=== PATIENT | female | born 1960 | race Two or more races ===

== ENCOUNTER 2017-08-25 09:56 | Emergency (ER) | payer BC, OTHER ==
--- NOTE | 2017-08-25 11:49 | Diagnostic Imaging Report ---
CT scan lumbar spine HISTORY: Pain, trauma Total DLP equals 1019 CTDI equals 34.6 Axial sections were obtained through the lumbar spine. Additional sagittal and coronal reformatted images are provided. Alignment is normal. Disc spaces are maintained. Small spur formation noted off the anterior superior margins of the bodies of L3, L4, L5. No acute abnormalities. No fractures. IMPRESSION: 1. Mild degenerative changes 2. No acute abnormalities
--- NOTE | 2017-08-25 11:51 | Diagnostic Imaging Report ---
Left lower extremity Doppler venous ultrasound exam HISTORY: Pain/swelling Sonographic sector images were obtained through the deep venous systems of the left leg. Associated Doppler data was obtained. The exam demonstrates patency of the common femoral, superficial femoral, popliteal, and posterior tibial veins. Specifically, no thrombus is seen. There are normal compressibility and augmentation responses. IMPRESSION: Negative exam for deep vein thrombophlebitis.
--- NOTE | 2017-08-25 12:45 | ED Physician Chart ---
ED Chief Complaint/HPI - Patient Information Date Seen:: 08/25/17 Time Seen:: 10:10 Chief Complaint:: LEFT LOWER BACK PAIN History of Present Illness:: THIS IS A 57 YO FEMALE WITH THE SUDDEN ONSET OF LEFT LOWER BACK PAIN TRAVELING DOWN TO HER LEFT LOWER LEG. SHE DENIES HAVING A RECENT INJURY OR FALL. 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 Allergies:: Allergies Allergy/AdvReac Type Severity Reaction Status Date / Time No Known Allergies Allergy Verified 08/25/17 10:09 Vitals:: Vital Signs - 8 hr 08/25/17 08/25/17 10:04 12:28 Temp 97.8 F 97.5 F HR 69 83 RR 16 18 BP 134/76 127/60 O2 Sat % 98 99 Historian:: Patient Review:: Nurse's Note Reviewed ED Review of Systems - Review of Systems General/Constitutional: No fever, No chills, No weight loss, No weakness, No diaphoresis, No edema, No loss of appetite Skin: No skin lesions, No rash, No bruising Head: No headache, No light-headedness Eyes: No loss of vision, No pain, No diplopia ENT: No earache, No nasal drainage, No sore throat, No tinnitus Neck: No neck pain, No swelling, No thyromegaly, No stiffness, No mass noted Cardio Vascular: No chest pain, No palpitations, No PND, No orthopnea, No edema Pulmonary: No SOB, No cough, No sputum, No wheezing GI: No nausea, No vomiting, No diarrhea, No pain, No melena, No hematochezia, No constipation, No hematemesis G/U: No dysuria, No frequency, No hematuria Musculoskeletal: No bone or joint pain, Back pain (LEFT LOWER BACK TENDERNESS WITH LIMITED PAINFUL ROM.), No muscle pain Endocrine: No polyuria, No polydipsia Psychiatric: No prior psych history, No depression, No anxiety, No suicidal ideation Hematopoietic: No bruising, No lymphadenopathy Allergic/Immuno: No urticaria, No angioedema Neurological: No syncope, No focal symptoms, No weakness, No paresthesia, No headache, No seizure, No dizziness, No confusion, No vertigo ED Past Medical History - Past Medical History Obtainable: Yes Past Medical History: No significant medical hx Family History: None Social History: Non Smoker, No Alcohol, No Drug Use, Single Surgical History: Hysterectomy Psychiatricy History: None Medication: Reviewed ED Physical Exam - Physical Examination General/Constitutional: Awake, Well-developed, well-nourished, Alert, No distress, GCS 15, Non-toxic appearing, Ambulatory Head: Atraumatic Eyes: Lids, conjuctiva normal, PERRL, EOMI Skin: Nl inspection, No rash, No skin lesions, No ecchymosis, Well hydrated, No lymphadenopathy ENMT: External ears, nose nl, Nasal exam nl, Lips, teeth, gums nl Neck: Nontender, Full ROM w/o pain, No JVD, No nuchal rigidity, No bruit, No mass, No stridor Respiratory: Nl effort/Exclusion, Clear to Auscultation, No Wheeze/Rhonchi/Rales Cardio Vascular: RRR, No murmur, gallop, rubs, NL S1 S2 GI: No tenderness/rebounding/guarding, No organomegaly, No hernia, Normal BS's, Nondistended, No mass/bruits, No McBurney tenderness : No CVA tenderness Extremities: No tenderness or effusion, Full ROM, normal strength in all extremities, No edema, Normal digits & nails Neuro/Psych: Alert/oriented, DTR's symmetric, Normal sensory exam, Normal motor strength, Judgement/insight normal, Mood normal, Normal gait, No focal deficits Misc: Normal back (THERE IS TENDERNESS WITH LIMTED ROM BECAUSE OF PAIN AT THE L2=L5 AREA ON THE LEFT SIDE.), No paraspinal tenderness ED Labs/Radiology/EKG Results - Radiology Results Results: CT SCAN OF THE LUMBO SACRAL SPINE = NAD BUT SPURS NOTED ED Assessment - Assessment General Assessment: LUMBO SACRAL STRAIN ED Septic Shock - . Is Septic Shock (SBP<90, OR Lactate>4 mmol\L) present?: No - <6hrs of presentation: Vital Signs: Vital Signs - 8 hr 08/25/17 08/25/17 10:04 12:28 Temp 97.8 F 97.5 F HR 69 83 RR 16 18 BP 134/76 127/60 O2 Sat % 98 99 ED Reassessment (Disposition) - Reassessment Reassessment Condition:: Improved - Diagnosis Diagnosis:: LUMBOSACRAL STRAIN - Aftercare/Follow up Instructions Aftercare/Follow-Up Instructions:: Counseled pt regarding lab results/diagnosis & need follow up, Refer to Discharge Instructions, Counseled pt & family regarding lab results/diagnosis & need follow up - Patient Disposition Discharge/Transfer:: Home Condition at Disposition:: Improved ED Discharge Plan - Patient Disposition Admit/Discharge/Transfer: PT DISCHARGED HOME Condition at Disposition: Stable Instructions: Lumbosacral Strain
== END 2017-08-25 12:30 | disposition home or self-care (01) ==
LOC: ER 09:56
DX: S39.012A Strain of muscle, fascia and tendon of lower back, initial encounter (principal); Z90.710 Acquired absence of both cervix and uterus; X58.XXXA Exposure to other specified factors, initial encounter; Y93.89 Activity, other specified; Y92.89 Other specified places as the place of occurrence of the external cause; Y99.8 Other external cause status
CPT/HCPCS: 99284; 96372; 93971; 72131; J1885; Z7502